=== PATIENT | female | born 1990 | race Asian ===

== ENCOUNTER 2016-12-22 21:20 | Emergency (ER) | payer OTHER ==
[~2016-12-22] VITALS: Ht 165.1 cm; Wt 90.7 kg
[2016-12-22 21:24] VITALS: BP 124/66
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
== END 2016-12-22 22:06 ==
LOC: ERH 21:20
DX: S09.90XA Unspecified injury of head, initial encounter (principal); V49.40XA Driver injured in collision with unspecified motor vehicles in traffic accident, initial encounter; Y92.410 Unspecified street and highway as the place of occurrence of the external cause